=== PATIENT | male | born 1980 | race American Indian/Alaskan Native ===

== ENCOUNTER 2017-12-27 08:44 | Emergency (ER) | payer BC ==
[2017-12-27 09:27] LABS: Basophils # (Auto) 0.1 K/mm3 (0.0-0.1); Basophils % (Auto) 0.4 % (0.0-1.8); Eosinophils # (Auto) 0.1 K/mm3 (0.0-0.4); Eosinophils % (Auto) 0.6 % (0.0-4.3); Hematocrit 45.2 % (35.5-45.6); Hemoglobin 14.9 gm/dl (11.8-15.2); Lymphocytes # (Auto) 2.3 K/mm3 (1.2-5.4); Lymphocytes % (Auto) 18.3 % (13.4-35.0); Mean Corpuscular HGB Conc 33 % (32-34); Mean Corpuscular Hemoglobin 29 pg (28-32); Mean Corpuscular Volume 89 fl (84-94); Monocytes # (Auto) 1.4 K/mm3 (0.0-0.8); Monocytes % (Auto) 11.6 % (0.0-7.3); Platelet Count 203 K/mm3 (140-440); Red Blood Count 5.08 M/mm3 (3.65-5.03); Red Cell Distribution Width 13.3 % (13.2-15.2)
[2017-12-27 09:44] LABS: Bilirubin,Urine NEG (Negative); Blood,Urine NEG (Negative); Color,Urine Amber (Yellow); Mucus,Urine 3+ /HPF; Urobilinogen,Urine < 2.0 mg/dL (<2.0)
[2017-12-27 09:51] LABS: Alanine Aminotransferase 39 units/L (7-56); Albumin 3.7 g/dL (3.9-5); BUN/Creatinine Ratio 11; Blood Urea Nitrogen 11 mg/dL (9-20); Calcium 9.7 mg/dL (8.4-10.2); Hemolysis Index 62
[2017-12-27] MEDS ORDERED: NACL 0.9% 1000 ML 1,000 ML IV ONE (13:09)
[2017-12-27] MEDS ORDERED: TORADOL IV ONE (13:09)
--- NOTE | 2017-12-27 13:09 | Emergency Department Report ---
Blank Doc - Documentation Documentation: . Patient is a 37-year-old black male presenting with right lower quadrant pain for approximately 1 week. Patient denies any nausea vomiting or diarrhea. Patient states that the pain is worse with palpation. Patient's has had a decreased appetite for approximately a week as well. Brief physical exam patient has some right lower quadrant pain with no rebound. Patient has normal blood work however his urine does show 80 ketones. Patient will be moved toto the main for IV fluids and CT scan of the abdomen and pelvis.
--- NOTE | 2017-12-27 15:19 | Cat Scan Report ---
CT ABDOMEN PELVIS WITH CONTRAST: HISTORY: Right lower quadrant abdominal pain. COMPARISON: none. TECHNIQUE: Helical CT in 1.25mm intervals following IV contrast. Sagittal and coronal reconstructions. FINDINGS: Lung bases: Normal. Liver: Normal. Biliary system: Normal. Pancreas: Normal. Spleen: Normal. Kidneys/ureters/bladder: Normal. Adrenal glands: Normal. Aorta: Normal. Intestines: No oral contrast was administered which limits this exam. There is moderate inflammation in the right lower quadrant which appears to arise from the cecum. There is extensive cecal thickening and surrounding fat stranding. I believe I see the appendix posterior to the cecum which measures 7.4 mm in diameter. There is a calcification in this area which probably represents an appendicolith. Having said that, I do not see a dilated and inflamed appendix. Inflammation appears to be more centered on the cecum. Intussusception could also be considered. Ascites: None. No evidence for abscess or free air. Adenopathy: None. Musculoskeletal: Normal. IMPRESSION: There is an inflammatory process in the right lower quadrant which appears to arise from the cecum. I believe I see the appendix which is retrocecal in location and normal in diameter. Although acute appendicitis is within the differential, I suspect this is more consistent with inflammation of the cecum. A focal colitis or possibly intussusception could be considered. Recommend consultation with a surgeon. These findings were discussed with Dr. Adamson in the emergency department at 1500 hrs.
--- NOTE | 2017-12-27 15:24 | Emergency Department Report ---
ED Abdominal Pain HPI - General Chief Complaint: Abdominal Pain Stated Complaint: ABD PAIN Time Seen by Provider: 12/27/17 12:45 Source: patient Mode of arrival: Ambulatory Limitations: No Limitations - History of Present Illness Initial Comments: This is a 37-year-old male nontoxic, well nourished in appearance, no acute signs of distress presents to the ED with c/o of right lower quadrant pain x1 week. Patient describes pain as cramping and aching with level of 8/10. Patient denies any nausea, vomiting or diarrhea. Patient stated he believes it is gas but agrees to have a normal bowel movement with last one being this morning. Patient stated pain is worse during palpation. Patient denies chest pain, shortness of breathe, fever, chills, headache. stiff neck, nausea, vomiting, back pain. Patient denies any recent travels of long car rides. Patient denies any drug allergies. PMH includes HTN. MD Complaint: abdominal pain -: week(s) (1) Location: RLQ Radiation: none Migration to: no migration Severity: mild Severity scale (0 -10): 8 Quality: cramping, aching Consistency: constant Improves With: nothing Worsens With: nothing Associated Symptoms: denies other symptoms. denies: nausea, vomiting, diarrhea , fever, chills, constipation, dysuria, hematemesis, hematochezia, melena, hematuria, anorexia, syncope - Related Data Previous Rx's Medication Instructions Recorded Last Taken Type Acetaminophen/Codeine [Tylenol 1 tab PO Q6H PRN #15 tab 12/27/17 Unknown Rx /Codeine # 3 tab] Ciprofloxacin [Ciprofloxacin ORAL 500 mg PO Q12H #14 ml 12/27/17 Unknown Rx LIQ] metroNIDAZOLE [Flagyl] 500 mg PO Q12HR #14 tab 12/27/17 Unknown Rx Allergies Allergy/AdvReac Type Severity Reaction Status Date / Time shellfish derived Allergy Unknown Verified 12/27/17 13:41 ED Review of Systems ROS: Stated complaint: ABD PAIN Other details as noted in HPI Constitutional: denies: chills, fever Eyes: denies: eye pain, eye discharge, vision change ENT: denies: ear pain, throat pain Respiratory: denies: cough, shortness of breath, wheezing Cardiovascular: denies: chest pain, palpitations Endocrine: no symptoms reported Gastrointestinal: abdominal pain. denies: nausea, diarrhea Genitourinary: denies: urgency, dysuria Musculoskeletal: denies: back pain, joint swelling, arthralgia Skin: denies: rash, lesions Neurological: denies: headache, weakness, paresthesias Psychiatric: denies: anxiety, depression Hematological/Lymphatic: denies: easy bleeding, easy bruising ED Past Medical Hx - Past Medical History Hx Asthma: Yes - Surgical History Past Surgical History?: No - Social History Smoking Status: Never Smoker Substance Use Type: Marijuana - Medications Home Medications: Home Medications Medication Instructions Recorded Confirmed Last Taken Type Acetaminophen/Codeine [Tylenol 1 tab PO Q6H PRN #15 tab 12/27/17 Unknown Rx /Codeine # 3 tab] Ciprofloxacin [Ciprofloxacin ORAL 500 mg PO Q12H #14 ml 12/27/17 Unknown Rx LIQ] metroNIDAZOLE [Flagyl] 500 mg PO Q12HR #14 tab 12/27/17 Unknown Rx ED Physical Exam - General Limitations: No Limitations General appearance: alert, in no apparent distress - Head Head exam: Present: atraumatic, normocephalic - Eye Eye exam: Present: normal appearance Pupils: Present: normal accommodation - ENT ENT exam: Present: normal exam, mucous membranes moist - Neck Neck exam: Present: normal inspection, full ROM. Absent: tenderness, meningismus - Respiratory Respiratory exam: Present: normal lung sounds bilaterally. Absent: respiratory distress, wheezes, rales, rhonchi, stridor - Cardiovascular Cardiovascular Exam: Present: regular rate, normal rhythm, normal heart sounds. Absent: bradycardia, tachycardia, irregular rhythm, systolic murmur, diastolic murmur, rubs, gallop - GI/Abdominal GI/Abdominal exam: Present: soft, tenderness (RLQ), normal bowel sounds. Absent : distended, guarding, rebound, rigid, diminished bowel sounds - Rectal Rectal exam: Present: deferred - Extremities Exam Extremities exam: Present: normal inspection, full ROM, normal capillary refill - Back Exam Back exam: Present: normal inspection, full ROM - Neurological Exam Neurological exam: Present: alert, oriented X3, normal gait - Psychiatric Psychiatric exam: Present: normal affect, normal mood - Skin Skin exam: Present: warm, dry, intact, normal color. Absent: rash ED Course Vital Signs 12/27/17 12/27/17 08:47 12:49 Temperature 97.7 F 98.7 F Pulse Rate 87 88 Respiratory 16 16 Rate Blood Pressure 122/68 Blood Pressure 114/70 [Left] O2 Sat by Pulse 98 100 Oximetry - Reevaluation(s) Reevaluation #1: 12/27/17 15:28 Patient is speaking in full sentences with no signs of distress noted. - Consultations Consultation #1: 12/27/17 15:29 Patient has been consulted with Dr. Adamson about patient history, physical exam , and labs/CT results and examined and screened patient and agrees to ED plan of care with surgery consult. Consultation #2: 12/27/17 15:33 Dr. Adamson consulted with Dr. Whittaker (general surgeon) which he went over the CT scan with Dr. Orozco. Dr. Olson came and examined patient himself. Consultation #3: 12/27/17 16:08 Dr. Whittaker stated patient can go home and have patient return to xray department at 7 AM for a barium enema exam. Also stated to discharge patient on Keflex. ED Medical Decision Making - Lab Data Result diagrams: 12/27/17 09:14 12/27/17 09:14 - Medical Decision Making this is a 37-year-old male that presents with RLQ abdominal pain. Patient is stable and was examined by me and Dr. Adamson. Ct obtained and dictated by the radiologist. Patient is notified of the Ct report which no questions noted by the patient. Labs obtained. Patient received some fluids in the ED. Dr. Whittaker was consulted and examined the patient. As per Dr. 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 Dr. Whittaker requested that I put patient on Keflex. Spoke with Dr. Adamson, and believe that patient needs more coverage so patient is discharged with Cipro and Flagyl. Patient is discharged also on TYlenol #3. Patient was given strict precautions on clear liquid diet as per Dr. Whittaker request. At time of discharge, the patient does not seem toxic or ill in appearance. No acute signs of distress noted. Patient agrees to discharge treatment plan of care. No further questions noted by the patient. Critical care attestation.: If time is entered above; I have spent that time in minutes in the direct care of this critically ill patient, excluding procedure time. ED Disposition Clinical Impression: Right lower quadrant abdominal pain Disposition: DC-01 TO HOME OR SELFCARE Is pt being admited?: No Does the pt Need Aspirin: No Condition: Stable Instructions: Abdominal Pain (ED), Acetaminophen/Codeine (By mouth), Cephalexin (By mouth) Additional Instructions: Return to the Radiology department at 7 AM tomorrow as directed to your by Dr. Whittaker for a barium enema study test. If symptoms worsen and any new symptoms, return to the ED as soon as possible. Prescriptions: Acetaminophen/Codeine [Tylenol /Codeine # 3 tab] 1 tab PO Q6H PRN #15 tab PRN Reason: Pain Ciprofloxacin [Ciprofloxacin ORAL LIQ] 500 mg PO Q12H #14 ml metroNIDAZOLE [Flagyl] 500 mg PO Q12HR #14 tab Referrals: PRIMARY CAREMD [Primary Care Provider] - 3-5 Days [facility] [Outside] - 3-5 Days [facility] [Outside] - 3-5 Days OLYA WHITTAKER MD [Staff Physician] - 24 Hours Forms: Work/School Release Form(ED)
[2017-12-27 17:08] VITALS: BP 126/70
--- NOTE | 2017-12-28 00:41 | Consultation ---
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 He is a 37-year-old black male, who has been having nonspecific strange pain to the right mid lower abdomen, sometimes to the right lower aspect. He had no nausea or vomiting. He is a healthy young man. He had no problem with his bowel movements. He denied any bleeding, any constipation. He denied any fevers. He was evaluated by our ER physician. His CBC was essentially negative. His CMP was normal. So the patient had a CAT scan that showed some thickening in the area of the cecum with intracecal mass? I was not sure if this is intussusception, although he has no evidence of small bowel obstruction. I reviewed the films with Dr. Orozco, our radiologist and I talked with our ER physician. I believe we need to pursue that with barium enema. This could be done on him tomorrow morning. In the meantime, the patient was asked to call me if he has any problem otherwise, to come here at 7:30 or 8 in the morning and then will go from there. I did indicate to him that he may need an operation. He may need also and/or colonoscopy. I discussed the case with our ER physician, Dr. Anibal Adamson and we will go from there. JOB# [id number] DEREK/DAWSON
== END 2017-12-27 17:08 | disposition home or self-care (01) ==
LOC: ED 08:44
DX: R10.31 Right lower quadrant pain (principal); J45.909 Unspecified asthma, uncomplicated; Z91.013 Allergy to seafood
CPT/HCPCS: 36415; 74177; 80053; 81001; 85025; 96361; 96374; 99284; J1885; J7030; Q9967

== ENCOUNTER 2017-12-28 08:29 | Outpatient (CLI) | payer BC ==
--- NOTE | 2017-12-29 07:59 | Fluoroscopy Report ---
AIR CONTRAST BARIUM ENEMA History: Cecal mass, cecal inflammation, cecal thickening. Findings: The CT abdomen pelvis with contrast dated 12/27/17 was again reviewed. [employer] film of the abdomen demonstrates an unremarkable bowel gas pattern. A rectal tube was inserted for retrograde administration of barium contrast agent. Air contrast was also added. 21 fluoroscopic images were captured. There is mild fecal matter in the proximal colon which limits this exam. Having said that, there is mild nodular mucosal thickening in the cecum and to a lesser extent the terminal ileum. No polypoid mass, stricture or extravasation. The appendix is not confidently identified on barium enema. The remainder of the colon is within normal limits demonstrating normal mucosal pattern and distensibility. No additional mucosal lesion. The rectum is unremarkable. IMPRESSION: Nonspecific nodular thickening of the cecum and to a lesser extent the terminal ileum as described. Given the age of this patient, an inflammatory process is suspected although a cecal mass is difficult to exclude. Consider direct visualization with colonoscopy.
== END 2017-12-28 08:30 | disposition home or self-care (01) ==
LOC: FLUORO 08:29
PROVIDERS: ATTEND Emergency Medicine
DX: R10.9 Unspecified abdominal pain (principal)
CPT/HCPCS: 74280